=== PATIENT | female | born 1935 | race Caucasian/White ===

== ENCOUNTER 2017-11-16 20:52 | Inpatient (IN) | payer MEDICARE ==
[2017-11-16] MEDS ORDERED: MELATONIN 3 MG TABLET PO PRN (23:47)
[2017-11-16] MEDS ORDERED: traMADol 50 MG TAB PO PRN (23:47)
[2017-11-16] MEDS ORDERED: NALOXONE 0.4 MG/ML 1 ML VIAL IV PRN (23:47)
[2017-11-16] MEDS ORDERED: ALPRAZolam 0.25 MG TAB PO PRN (23:47)
[2017-11-16] MEDS ORDERED: ACETAMINOPHEN TAB 325 MG TAB PO PRN (23:47)
[2017-11-16 23:54] VITALS: BMI 27.8
[2017-11-16] MEDS ORDERED: hydrALAZINE HCL 20 MG/ML 1 ML VIAL IVP PRN (23:58)
[2017-11-17] MEDS: SODIUM CHLORIDE 0.9% 1,000 ML IV SCH ×2 (00:26→12:33)
[2017-11-17 00:41] LABS: Basophils % (A) 0 %; Eosinophils % (A) 1 %; HCT 31.4 % (34.0-46.0); HGB 10.1 gm/dL (11.4-16.0); Lymphocytes # (A) 0.4 k/uL (1.0-4.8); Lymphocytes % (A) 5 %; MCH 26.7 pg (25.0-35.0); MCHC 32.2 g/dL (31.0-37.0); MCV 82.8 fL (80.0-100.0); Mean Platelet Volume 7.6; Monocytes # (A) 0.2 k/uL (0-1.0); Monocytes % (A) 3 %; Neutrophils # (A) 6.5 k/uL (1.3-7.7); Neutrophils % (A) 89 %; Platelet Count 250 k/uL (150-450); RBC 3.79 m/uL (3.80-5.40); RDW 13.9 % (11.5-15.5); WBC 7.4 k/uL (3.8-10.6)
[2017-11-17 01:02] LABS: INR 1.1 (<1.2); Prothrombin Time 10.9 sec (9.0-12.0)
[2017-11-17 01:05] LABS: Appearance,Urine Clear (Clear); Bilirubin,Urine Negative (Negative); Blood,Urine Small (Negative); Color,Urine Yellow; Glucose,Urine (UA) Negative (Negative); Ketones,Urine Negative (Negative); Leukocyte Esterase,Urine Moderate (Negative); Nitrite,Urine Negative (Negative); PH, Urine 6.5 (5.0-8.0); Protein,Urine 1+ (Negative); RBC,Urine 17 /hpf (0-5); Specific Gravity,Urine 1.036 (1.001-1.035); Squamous Epithelial Cell,Urine <1 /hpf (0-4); Urobilinogen,Urine <2.0 mg/dL (<2.0); WBC,Urine 30 /hpf (0-5)
[2017-11-17 01:21] LABS: ALT 37 U/L (9-52); AST 21 U/L (14-36); Albumin 2.9 g/dL (3.5-5.0); Alkaline Phosphatase 62 U/L (38-126); Anion Gap 11 mmol/L; Blood Urea Nitrogen 13 mg/dL (7-17); Calcium 8.4 mg/dL (8.4-10.2); Carbon Dioxide 25 mmol/L (22-30); Chloride 103 mmol/L (98-107); Glucose 143 mg/dL (74-99); Potassium 3.7 mmol/L (3.5-5.1); Sodium 139 mmol/L (137-145); Total Bilirubin 0.2 mg/dL (0.2-1.3); Total Protein 5.2 g/dL (6.3-8.2)
--- NOTE | 2017-11-17 05:20 | HP ---
HISTORY AND PHYSICAL CHIEF COMPLAINT: The chief complaints are fever and pyelonephritis. HISTORY OF PRESENT ILLNESS: This 82-year-old woman with a past medical history of diabetes, hypertension, incisional hernia was admitted to [facility] on Wednesday with the complaints of fever up to 103 and some urgency in micturition suggestive of pyelonephritis. Patient has been on broad-spectrum IV antibiotics. The patient has high white count at that time. Renal function was normal. Apparently because of lack of improvement and some abdominal pain, the patient underwent a CAT scan of the abdomen which showed multiple abnormalities including large calculus 2 x 1.5 cm x 1.5 cm in the right renal pelvis and smaller 11 mm calcification with evidence of obstructive uropathy. Dilatation of the right ureter with right-sided obstructive uropathy was noted and Urology was contacted and patient was transferred to [facility] as a direct admission at this time. There is no history of any fevers, rigors. No history of headache, loss of conscious or seizures. PAST MEDICAL HISTORY: Hypertension, diabetes mellitus, history of salivary gland tumor, history of sepsis. MEDICATIONS: Medications prior to admission include home medications are reviewed include: 1. Lisinopril 40 mg p.o. daily. 2. Clonidine 0.2 mg p.o. daily. 3. Metformin. ALLERGIES: Allergies are none. FAMILY HISTORY: No history of heart disease or strokes in the family. SOCIAL HISTORY: No history of smoking. No history of alcohol intake. REVIEW OF SYSTEMS: ENT: No diminished hearing or diminished vision. CARDIOVASCULAR SYSTEM: No angina. RESPIRATORY SYSTEM: As mentioned earlier. GI: As mentioned earlier. : As mentioned earlier. NERVOUS SYSTEM: No numbness or weakness. ALLERGY/IMMUNOLOGY: No history of asthma or hayfever. MUSCULOSKELETAL: As mentioned earlier. HEMATOLOGY/ONCOLOGY: No history of anemia. ENDOCRINE: As mentioned earlier. CONSTITUTIONAL: As mentioned earlier. DERMATOLOGY: Negative. RHEUMATOLOGY: Negative. PSYCHIATRY: As mentioned earlier. PHYSICAL EXAM: The patient is alert and oriented x3. The pulse is 79, blood pressure 137/79, respirations 16, temperature 97.8, pulse ox 98% on room air. HEENT: Conjunctivae normal. Oral mucosa moist. Neck is no jugular venous distention. No carotid bruit. No lymph node enlargement. CARDIOVASCULAR: S1 and S2 muffled. No S3, no S4. RESPIRATORY: Breath sounds diminished at the bases. No rhonchi. No crackles. ABDOMEN: Soft, obese, status post incisional hernia repair previously old. Otherwise, nontender, no mass palpable. No renal angle tenderness noted. Bowel sounds present. No ascites. LEGS: No edema, no swelling. NERVOUS SYSTEM: Higher functions as mentioned earlier. Moves all 4 limbs. No focal motor or sensory deficits. LYMPHATICS: No lymphadenopathy of the neck, axillae or groin. SKIN: No ulcer, rash or bleeding. LABS: The white count is elevated. Otherwise the creatinine is normal. ASSESSMENT: 1. Recent acute pyelonephritis and sepsis. 2. Renal calculus and possibly hydronephrosis. 3. Diabetes mellitus type 2. 4. Hypertension. 5. History of salivary gland tumor. 6. History of recent sepsis. 7. History of recurrent incisional hernia and repair. 8. FULL CODE. RECOMMENDATIONS AND DISCUSSION: In this 82-year-old woman who presented with multiple medical problems, we will monitor the patient closely, continue the current medication, continue symptomatic treatment. Will obtain cultures, baseline labs and we will continue the antibiotics, symptomatic treatment provided, home medications will be continued. Urology will be consulted. DVT prophylaxis. See orders for further details. Prognosis guarded because of multiple complex medical issues. Further recommendations to follow. MMODL / IJN: [id number] /
[2017-11-17 06:53] LABS: Glucose,Whole Blood 131 mg/dL (75-99)
[2017-11-17] MEDS: INSULIN ASPART 100 UNIT/ML 1 ML 10 ML VIAL SQ SCH ×3 (07:29→17:47)
--- NOTE | 2017-11-17 07:39 | XR ---
EXAMINATION TYPE: XR chest 1V portable DATE OF EXAM: 11/17/2017 COMPARISON: NONE INDICATION: CHF TECHNIQUE: Single frontal view of the chest is obtained. FINDINGS: The heart size is enlarged. The pulmonary vasculature is normal. No suspicious infiltrates are evident. IMPRESSION: 1. Cardiomegaly. 2. No suspicious infiltrates.
[2017-11-17 08:16] LABS: Basophils % (A) 0 %; Eosinophils # (A) 0.1 k/uL (0-0.7); Eosinophils % (A) 1 %; HGB 10.4 gm/dL (11.4-16.0); Lymphocytes # (A) 0.4 k/uL (1.0-4.8); Lymphocytes % (A) 5 %; MCH 26.9 pg (25.0-35.0); MCHC 32.4 g/dL (31.0-37.0); MCV 82.9 fL (80.0-100.0); Mean Platelet Volume 7.2; Monocytes # (A) 0.3 k/uL (0-1.0); Monocytes % (A) 4 %; Neutrophils # (A) 6.9 k/uL (1.3-7.7); Neutrophils % (A) 88 %; Platelet Count 283 k/uL (150-450); RBC 3.86 m/uL (3.80-5.40); RDW 13.9 % (11.5-15.5); WBC 7.9 k/uL (3.8-10.6)
[2017-11-17 08:28] LABS: Anion Gap 12 mmol/L; Blood Urea Nitrogen 12 mg/dL (7-17); Calcium 8.5 mg/dL (8.4-10.2); Carbon Dioxide 26 mmol/L (22-30); Chloride 101 mmol/L (98-107); Glucose 114 mg/dL (74-99); Potassium 3.6 mmol/L (3.5-5.1); Sodium 139 mmol/L (137-145)
[2017-11-17] MEDS: LISINOPRIL 20 MG TAB PO SCH (08:51)
[2017-11-17] MEDS: HEPARIN SODIUM,PORCINE 5,000 UNIT/ML 1 ML VIAL SQ SCH ×2 (08:52→22:01)
[2017-11-17] MEDS: cloNIDine HCL 0.2 MG TAB PO SCH ×2 (08:52→22:01)
[2017-11-17] MEDS: cefTRIAXone IN SWFI 1,000 MG/10 ML SYRINGE IVP SCH (08:52)
[2017-11-17] MEDS: PANTOPRAZOLE 40 MG TABLET PO SCH (08:52)
--- NOTE | 2017-11-17 10:37 | P.GSCN ---
History of Present Illness Consult date: 11/17/17 History of present illness: The patient is an 82-year-old female transferred from [facility] because of kidney stones and pyelonephritis. The patient over the weekend developed an elevated temperature to what she said was 101. She ended up in the [place] emergency room. Her urine apparently was infected and she is being treated with a pyelonephritis. Her symptoms did not seem to improve and she is having some pain thus a computed tomography scan of the abdomen was obtained. The computed tomography scan of the abdomen identified a large left renal pelvic stone, greater than 2 cm plus some Lower calyceal stones on the left at about a centimeter. On the right there was hydroureteronephrosis to a stone in the distal right ureter. She denied any right flank pain and right lower quadrant pain. She has been given antibiotics at [facility] and her white count has normalized as has her temperature. She is transferred for further medical and/or urologic care. This is the patient's first stone. She was evaluated in the past by for hematuria. He has no other urologic issues. 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 REMOVAL OF SALIVA GLAND TUMOR. hernia surgtery x2 Past Anesthesia/Blood Transfusion Reactions: No Reported Reaction Past Psychological History: No Psychological Hx Reported Smoking Status: Never smoker Past Alcohol Use History: None Reported Past Drug Use History: None Reported - Past Family History Mother Family Medical History: No Reported History Medications and Allergies Home Medications Medication Instructions Recorded Confirmed Type cloNIDine HCL 0.2 mg PO BID 12/25/14 11/17/17 History Lisinopril 40 mg PO DAILY 11/16/17 11/17/17 History Multivit-Min/FA/Lycopen/Lutein 1 tab PO DAILY 11/17/17 11/17/17 History [Centrum Silver Tablet] Perfect Eye 1 tab PO BID 11/17/17 11/17/17 History metFORMIN HCL 1,000 mg PO DIRECTED 11/17/17 11/17/17 History Allergies Allergy/AdvReac Type Severity Reaction Status Date / Time No Known Allergies Allergy Verified 11/17/17 07:57 Surgical - Exam Vital Signs Temp Pulse Resp BP Pulse Ox 97.8 F 79 16 137/79 98 11/16/17 23:34 11/16/17 23:34 11/16/17 23:34 11/16/17 23:34 11/16/17 23:34 - General well developed, well nourished, no distress - Eyes PERRL - ENT no hearing loss - Neck trachea midline - Respiratory normal expansion, normal respiratory effort - Cardiovascular Rhythm: regular - Abdomen Abdomen: soft, non tender - Neurologic normal coordination, normal sensation - Musculoskeletal normal posture - Psychiatric oriented to time, oriented to person, oriented to place, speech is normal, memory intact Results - Labs 11/17/17 07:43 11/17/17 07:43 Abnormal Lab Results - Last 24 Hours (Table) 11/17/17 11/17/17 11/17/17 Range/Units 00:27 00:27 00:40 RBC 3.79 L (3.80-5.40) m/uL Hgb 10.1 L (11.4-16.0) gm/dL Hct 31.4 L (34.0-46.0) % Lymphocytes # 0.4 L (1.0-4.8) k/uL Creatinine 0.51 L (0.52-1.04) mg/dL Glucose 143 H (74-99) mg/dL POC Glucose (mg/dL) (75-99) mg/dL Total Protein 5.2 L (6.3-8.2) g/dL Albumin 2.9 L (3.5-5.0) g/dL Ur Specific Gleason 1.036 H (1.001-1.035) Urine Protein 1+ H (Negative) Urine Blood Small H (Negative) Ur Leukocyte Esterase Moderate H (Negative) Urine RBC 17 H (0-5) /hpf Urine WBC 30 H (0-5) /hpf 11/17/17 11/17/17 11/17/17 Range/Units 06:52 07:43 07:43 RBC (3.80-5.40) m/uL Hgb 10.4 L (11.4-16.0) gm/dL Hct 32.0 L (34.0-46.0) % Lymphocytes # 0.4 L (1.0-4.8) k/uL Creatinine 0.51 L (0.52-1.04) mg/dL Glucose 114 H (74-99) mg/dL POC Glucose (mg/dL) 131 H (75-99) mg/dL Total Protein (6.3-8.2) g/dL Albumin (3.5-5.0) g/dL Ur Specific Gleason (1.001-1.035) Urine Protein (Negative) Urine Blood (Negative) Ur Leukocyte Esterase (Negative) Urine RBC (0-5) /hpf Urine WBC (0-5) /hpf Diabetes panel 11/17/17 11/17/17 Range/Units 00:27 07:43 Sodium 139 139 (137-145) mmol/L Potassium 3.7 3.6 (3.5-5.1) mmol/L Chloride 103 101 (98-107) mmol/L Carbon Dioxide 25 26 (22-30) mmol/L BUN 13 12 (7-17) mg/dL Creatinine 0.51 L 0.51 L (0.52-1.04) mg/dL Glucose 143 H 114 H (74-99) mg/dL Calcium 8.4 8.5 (8.4-10.2) mg/dL AST 21 (14-36) U/L ALT 37 (9-52) U/L Alkaline Phosphatase 62 (38-126) U/L Total Protein 5.2 L (6.3-8.2) g/dL Albumin 2.9 L (3.5-5.0) g/dL Calcium panel 11/17/17 11/17/17 Range/Units 00:27 07:43 Calcium 8.4 8.5 (8.4-10.2) mg/dL Albumin 2.9 L (3.5-5.0) g/dL Pituitary panel 11/17/17 11/17/17 Range/Units 00:27 07:43 Sodium 139 139 (137-145) mmol/L Potassium 3.7 3.6 (3.5-5.1) mmol/L Chloride 103 101 (98-107) mmol/L Carbon Dioxide 25 26 (22-30) mmol/L BUN 13 12 (7-17) mg/dL Creatinine 0.51 L 0.51 L (0.52-1.04) mg/dL Glucose 143 H 114 H (74-99) mg/dL Calcium 8.4 8.5 (8.4-10.2) mg/dL Adrenal panel 11/17/17 11/17/17 Range/Units 00:27 07:43 Sodium 139 139 (137-145) mmol/L Potassium 3.7 3.6 (3.5-5.1) mmol/L Chloride 103 101 (98-107) mmol/L Carbon Dioxide 25 26 (22-30) mmol/L BUN 13 12 (7-17) mg/dL Creatinine 0.51 L 0.51 L (0.52-1.04) mg/dL Glucose 143 H 114 H (74-99) mg/dL Calcium 8.4 8.5 (8.4-10.2) mg/dL Total Bilirubin 0.2 (0.2-1.3) mg/dL AST 21 (14-36) U/L ALT 37 (9-52) U/L Alkaline Phosphatase 62 (38-126) U/L Total Protein 5.2 L (6.3-8.2) g/dL Albumin 2.9 L (3.5-5.0) g/dL - Imaging CT scan - abdomen: report reviewed, image reviewed CT scan - pelvis: report reviewed, image reviewed Assessment and Plan Assessment: Impression: Urinary tract infection with sepsis presently being treated, left renal calculi, right ureteral calculus with obstruction. History of hypertension. Recommendations: The right ureteral calculus is one of concern at present however with the antibiotics are sepsis appears to be resolving. Frequently pyelonephrosis occurs with these obstructing stones and infection however the antibiotics seemed to control this is the white count and temperature of normalized. Since she is relatively asymptomatic with a normal white cell count and a normal temperature we probably can wait about a week to treat her completely with antibiotics and then secondarily if she does not pass a stone do ureteroscopy. The left side will probably need a percutaneous nephrostolithotomy and this can be done at a later date. I will notify of her admission.
[2017-11-17 11:06] LABS: Glucose,Whole Blood 122 mg/dL (75-99)
[2017-11-17 17:12] LABS: Glucose,Whole Blood 135 mg/dL (75-99)
--- NOTE | 2017-11-17 18:57 | P.PN ---
Subjective Progress Note Date: 11/17/17 Progress Note being dictated for Dr. Menendez. Interval history: This is an 82-year-old female admitted with recent acute pyelonephritis, sepsis, renal calculus and possible hydronephrosis and multiple other medical issues. CT reporting large left renal pelvic stone greater than 2 cm plus lower calyceal stones, right a oh ureter nephrosis secondary to a stone distal right ureter. Denies flank pain. Complains of pressure, frequency. No hematuria. Creatinine 0.5. Urine culture pending. Staff Obtaining sensitivities of urine culture obtained from [facility]. Evaluated by urology, recommendations noted. Maintained on IV antibiotics. Afebrile, normal WBC. Objective - Vital Signs Vital signs: Vital Signs Temp 98.8 F 11/17/17 15:15 Pulse 94 11/17/17 15:15 Resp 20 11/17/17 15:15 BP 146/79 11/17/17 15:15 Pulse Ox 95 11/17/17 15:15 Intake & Output 11/16/17 11/17/17 11/17/17 18:59 06:59 18:59 Intake Total 420 Balance 420 Weight 73.5 kg Intake: Intake, IV Titration 420 Amount Sodium Chloride 0.9% 1, 420 000 ml @ 70 mls/hr IV . [id number] [facility] Rx#:[id number] Other: Voiding Method Toilet Toilet # Voids 2 3 - Exam PHYSICAL EXAM: VITAL SIGNS: As above GENERAL: Sitting up in chair, no acute distress HEENT: Conjunctivae normal. eyes normal. Oral mucosa moist NECK: No JVD. No thyroid enlargement. No LNs CARDIOVASCULAR: S1, S2 muffled. No murmur RESPIRATION: Breath sounds diminished in the bases. No rhonchi or crackles. No bronchial breathing. ABDOMEN: Soft, nontender . No guarding. no masses palpable.Bowel sounds heard. LEGS: No edema. no swelling PSYCHIATRY: Alert and oriented -3, mood and affect normal. NERVOUS SYSTEM: Cranial N 2-12 grossly normal. Moves all 4 limbs. Diffuse weakness No focal deficits. Skin: no ulcer no rash Joints: No active swelling. No inflammation. Lymphatic system. No LN neck axilla or groin. - Labs CBC & Chem 7: 11/17/17 07:43 11/17/17 07:43 Labs: Abnormal Lab Results - Last 24 Hours (Table) 11/17/17 11/17/17 11/17/17 Range/Units 00:27 00:27 00:40 RBC 3.79 L (3.80-5.40) m/uL Hgb 10.1 L (11.4-16.0) gm/dL Hct 31.4 L (34.0-46.0) % Lymphocytes # 0.4 L (1.0-4.8) k/uL Creatinine 0.51 L (0.52-1.04) mg/dL Glucose 143 H (74-99) mg/dL POC Glucose (mg/dL) (75-99) mg/dL Total Protein 5.2 L (6.3-8.2) g/dL Albumin 2.9 L (3.5-5.0) g/dL Ur Specific [place] 1.036 H (1.001-1.035) Urine Protein 1+ H (Negative) Urine Blood Small H (Negative) Ur Leukocyte Esterase Moderate H (Negative) Urine RBC 17 H (0-5) /hpf Urine WBC 30 H (0-5) /hpf 11/17/17 11/17/17 11/17/17 Range/Units 06:52 07:43 07:43 RBC (3.80-5.40) m/uL Hgb 10.4 L (11.4-16.0) gm/dL Hct 32.0 L (34.0-46.0) % Lymphocytes # 0.4 L (1.0-4.8) k/uL Creatinine 0.51 L (0.52-1.04) mg/dL Glucose 114 H (74-99) mg/dL POC Glucose (mg/dL) 131 H (75-99) mg/dL Total Protein (6.3-8.2) g/dL Albumin (3.5-5.0) g/dL Ur Specific [place] (1.001-1.035) Urine Protein (Negative) Urine Blood (Negative) Ur Leukocyte Esterase (Negative) Urine RBC (0-5) /hpf Urine WBC (0-5) /hpf 11/17/17 11/17/17 Range/Units 11:04 17:04 RBC (3.80-5.40) m/uL Hgb (11.4-16.0) gm/dL Hct (34.0-46.0) % Lymphocytes # (1.0-4.8) k/uL Creatinine (0.52-1.04) mg/dL Glucose (74-99) mg/dL POC Glucose (mg/dL) 122 H 135 H (75-99) mg/dL Total Protein (6.3-8.2) g/dL Albumin (3.5-5.0) g/dL Ur Specific [place] (1.001-1.035) Urine Protein (Negative) Urine Blood (Negative) Ur Leukocyte Esterase (Negative) Urine RBC (0-5) /hpf Urine WBC (0-5) /hpf Microbiology - Last 24 Hours (Table) 11/17/17 00:40 Urine Culture - Preliminary Urine,Voided Assessment and Plan Assessment: 1. Acute UTI with sepsis secondary to left renal calculi, right ureteral calculus with obstruction. 2. Recent acute pyelonephritis and sepsis 3. Diabetes mellitus type 2 4. Hypertension 5. Recent sepsis Continuing current medication regime ,monitoring and symptomatic treatment. As mentioned above urine culture/sensitivity results being obtained from [facility] by staff. Urology wishes patient to continue on IV antibiotics for another 24 hours. No ureteroscopy at this time, possibly after completing a week of antibiotics, and eventually possible left nephrostolithomoty. Discharge planning in progress for tomorrow. Follow closely with urology. The impression and plan of care has been dictated as directed. : I performed a history and examination of this patient, discussed the same with the dictator. I agree with the dictator's note ,documented as a scribe. Any additional findings or plans will be noted.
[2017-11-17 23:11] VITALS: RESP 16; TEMP 97.1
[2017-11-18 06:21] VITALS: BP 170/73; PULSE 70
[2017-11-18] MEDS: HEPARIN SODIUM,PORCINE 5,000 UNIT/ML 1 ML VIAL SQ SCH (09:05)
[2017-11-18] MEDS: SODIUM CHLORIDE 0.9% 1,000 ML IV SCH (09:06)
[2017-11-18] MEDS: cloNIDine HCL 0.2 MG TAB PO SCH (09:06)
[2017-11-18] MEDS: PANTOPRAZOLE 40 MG TABLET PO SCH (09:06)
[2017-11-18] MEDS: cefTRIAXone IN SWFI 1,000 MG/10 ML SYRINGE IVP SCH (09:06)
[2017-11-18] MEDS: LISINOPRIL 20 MG TAB PO SCH (09:06)
--- NOTE | 2017-11-18 12:03 | P.PN ---
Progress Note - Text Progress Note Date: 11/18/17 The patient remains afebrile and comfortable. She is tolerating a regular diet and denies any abdominal pain. Urine culture obtained in [place] on 11/14 grew E. coli which was sensitive to all antibiotics tested. Blood culture obtained when she was admitted to this hospital is showing no growth. From my standpoint the patient could be discharged on Levaquin 500 mg daily for 14 days. I can see her back in my office in 7-10 days and at that time if she is doing well she will be scheduled for ureteroscopy with lithotripsy for treatment of her ureteral calculus.
--- NOTE | 2017-11-18 17:52 | P.DS ---
Providers Date of admission: 11/16/17 23:25 Expected date of discharge: 11/18/17 Attending physician: Ana Menendez Consults: 11/16/17 23:48 Consult Physician Routine Consulting Provider: Lambert Moreira Consult Reason/Comments: urolithiasis Do you want consulting provider notified?: Yes, Notify in am Primary care physician: Stated None Hospital Course: Final Diagnoses: 1. Acute UTI with sepsis secondary to left renal calculi, right ureteral calculus with obstruction. 2. Recent acute pyelonephritis and sepsis 3. Diabetes mellitus type 2 4. Hypertension Hospital course:This is an 82-year-old female admitted with recent acute pyelonephritis, sepsis, renal calculus and possible hydronephrosis and multiple other medical issues. CT reporting large left renal pelvic stone greater than 2 cm plus lower calyceal stones, right hydroureternephrosis secondary to a stone distal right ureter. No hematuria, denied flank pain. Creatinine stable. Urine culture negative. Urine culutre with sensitivities from [facility], verbally reported as E. coli, sensitive to all antibiotics tested. Hard copy in Route to chart. Evaluated by urology.Maintained on IV antibiotics. Significant clinical improvement. Cleared by urology for discharge.Patient to be discharged home on 14 days of Levaquin as per urology with outpatient ureteroscopy and lithotripsy being scheduled. Patient is being discharged home in a stable condition with guarded prognosis. PHYSICAL EXAM: GENERAL: Alert and oriented -3,Sitting up in chair, no acute distress CARDIOVASCULAR: S1, S2 muffled. No murmur RESPIRATION: Breath sounds diminished in the bases. No rhonchi or crackles. ABDOMEN: Soft, nontender . No guarding. no masses palpable.Bowel sounds heard. NERVOUS SYSTEM: Cranial N 2-12 grossly normal. Moves all 4 limbs. No focal deficits. The impression and plan of care has been dictated as directed. : I performed a history and examination of this patient, discussed the same with the dictator. I agree with the dictator's note ,documented as a scribe. Any additional findings or plans will be noted. Time taken: 35 minutes Patient Condition at Discharge: Stable Plan - Discharge Summary Discharge Rx Participant: No New Discharge Prescriptions: New Levofloxacin [Levaquin] 500 mg PO DAILY 14 Days #14 tab Omeprazole [PriLOSEC] 20 mg PO AC-BID 15 Days #30 cap No Action cloNIDine HCL 0.2 mg PO BID Lisinopril 40 mg PO DAILY Multivit-Min/FA/Lycopen/Lutein [Centrum Silver Tablet] 1 tab PO DAILY metFORMIN HCL 1,000 mg PO DIRECTED Perfect Eye 1 tab PO BID Discharge Medication List cloNIDine HCL 0.2 mg PO BID 12/25/14 [History] Lisinopril 40 mg PO DAILY 11/16/17 [History] Multivit-Min/FA/Lycopen/Lutein [Centrum Silver Tablet] 1 tab PO DAILY 11/17/17 [ History] Perfect Eye 1 tab PO BID 11/17/17 [History] metFORMIN HCL 1,000 mg PO DIRECTED 11/17/17 [History] Levofloxacin [Levaquin] 500 mg PO DAILY 14 Days #14 tab 11/18/17 [Rx] Omeprazole [PriLOSEC] 20 mg PO AC-BID 15 Days #30 cap 11/18/17 [Rx] Follow up Appointment(s)/Referral(s): Tadeo Villavicencio NPC [REFERRING] - 11/19/17 9:00 am Sarwat Enciso MD [STAFF PHYSICIAN] - 11/26/17 11:00 am Ambulatory/Diagnostic Orders: Complete Blood Count w/diff [LAB.AMB] Time Frame: 3 Days, Location: Determined By Patient Patient Instructions/Handouts: Omeprazole (By mouth), Levofloxacin (By mouth), Kidney Stones (DC), Kidney Infection (DC) Discharge Disposition: HOME SELF-CARE
== END 2017-11-18 15:55 | disposition home or self-care (01) | DRG 872 ==
LOC: 5MS5E 23:25
PROVIDERS: ADMIT Hospitalist; ATTEND Hospitalist
DX: A41.51 Sepsis due to Escherichia coli [E. coli] (principal); N10 Acute pyelonephritis; N13.6 Pyonephrosis; E11.9 Type 2 diabetes mellitus without complications; E78.5 Hyperlipidemia, unspecified; I10 Essential (primary) hypertension; K43.2 Incisional hernia without obstruction or gangrene; Z79.84 Long term (current) use of oral hypoglycemic drugs; Z79.899 Other long term (current) drug therapy; Z85.89 Personal history of malignant neoplasm of other organs and systems; Z87.440 Personal history of urinary (tract) infections; Z92.3 Personal history of irradiation; Z96.653 Presence of artificial knee joint, bilateral
CPT/HCPCS: 71045; 80048; 80053; 81001; 83036; 85025; 85610; 87040; 87086; 93005

== ENCOUNTER → 2017-11-22 | Outpatient (CLI) | payer MEDICARE ==
[2017-11-22 12:56] LABS: Basophils % (A) 0 %; Eosinophils # (A) 0.1 k/uL (0-0.7); Eosinophils % (A) 1 %; HCT 34.2 % (34.0-46.0); HGB 10.9 gm/dL (11.4-16.0); Lymphocytes # (A) 0.7 k/uL (1.0-4.8); Lymphocytes % (A) 9 %; MCHC 31.8 g/dL (31.0-37.0); Mean Platelet Volume 7.1; Monocytes # (A) 0.3 k/uL (0-1.0); Monocytes % (A) 4 %; Neutrophils # (A) 6.4 k/uL (1.3-7.7); Neutrophils % (A) 84 %; Platelet Count 438 k/uL (150-450); RBC 4.18 m/uL (3.80-5.40); RDW 14.1 % (11.5-15.5); WBC 7.6 k/uL (3.8-10.6)
[2017-11-22 13:06] LABS: Anion Gap 16 mmol/L; Blood Urea Nitrogen 12 mg/dL (7-17); Calcium 9.3 mg/dL (8.4-10.2); Carbon Dioxide 28 mmol/L (22-30); Chloride 102 mmol/L (98-107); Glucose 106 mg/dL (74-99); Potassium 3.4 mmol/L (3.5-5.1); Sodium 146 mmol/L (137-145)
== END | disposition home or self-care (01) ==
LOC: LABWHC1 12:09
PROVIDERS: ATTEND Nurse Practitioner
DX: N39.0 Urinary tract infection, site not specified (principal); N12 Tubulo-interstitial nephritis, not specified as acute or chronic
CPT/HCPCS: 36415; 80048; 85025

== ENCOUNTER → 2017-11-30 | Outpatient (CLI) | payer MEDICARE ==
--- NOTE | 2017-11-30 10:40 | XR ---
EXAMINATION TYPE: XR KUB DATE OF EXAM: 11/30/2017 COMPARISON: NONE HISTORY: Follow bilateral renal stones TECHNIQUE: One view abdominal series FINDINGS: The osseous structures are intact. The bowel gas pattern is nonspecific. There are dilated bowel loo ps in the abdomen. Extensive retained fecal debris obscures the renal outlines. There is suspicion fo r a central staghorn calculus measuring approximately 2 cm on the left. Renal outline on the right is completely obscured. Arthropathy of the hips. Calcifications in the pelvis are likely vascular. Degenerative change of the spine. IMPRESSION: 1. Suspect a left renal pelvic calcification measuring 2 cm. Assessment of the right kidney is nondia gnostic due to extensive overlying bowel gas. Note is made there is dilated bowel loops particularly in the right abdomen correlate clinically.
== END | disposition home or self-care (01) ==
LOC: RADXRMAIN 10:17
PROVIDERS: ATTEND Urology
DX: N20.2 Calculus of kidney with calculus of ureter (principal)
CPT/HCPCS: 74018

== ENCOUNTER → 2018-01-11 | Outpatient (CLI) | payer MEDICARE ==
[2018-01-11 11:26] LABS: ALT 23 U/L (9-52); AST 19 U/L (14-36); Alkaline Phosphatase 63 U/L (38-126); Anion Gap 9 mmol/L; Blood Urea Nitrogen 17 mg/dL (7-17); Calcium 9.7 mg/dL (8.4-10.2); Carbon Dioxide 26 mmol/L (22-30); Chloride 105 mmol/L (98-107); Glucose 112 mg/dL (74-99); Potassium 4.4 mmol/L (3.5-5.1); Sodium 140 mmol/L (137-145); Total Bilirubin 0.4 mg/dL (0.2-1.3); Total Protein 6.6 g/dL (6.3-8.2)
[2018-01-11 11:31] LABS: Basophils % (A) 0 %; Eosinophils # (A) 0.1 k/uL (0-0.7); Eosinophils % (A) 1 %; HCT 35.1 % (34.0-46.0); HGB 10.8 gm/dL (11.4-16.0); Lymphocytes # (A) 0.7 k/uL (1.0-4.8); Lymphocytes % (A) 12 %; MCH 25.4 pg (25.0-35.0); MCHC 30.9 g/dL (31.0-37.0); MCV 82.3 fL (80.0-100.0); Mean Platelet Volume 7.4; Monocytes # (A) 0.2 k/uL (0-1.0); Monocytes % (A) 4 %; Neutrophils # (A) 4.6 k/uL (1.3-7.7); Neutrophils % (A) 80 %; Platelet Count 249 k/uL (150-450); RBC 4.27 m/uL (3.80-5.40); RDW 14.8 % (11.5-15.5); WBC 5.7 k/uL (3.8-10.6)
[2018-01-11 11:55] LABS: Appearance,Urine Clear (Clear); Bacteria,Urine Rare /hpf; Bilirubin,Urine Negative (Negative); Blood,Urine Moderate (Negative); Color,Urine Yellow; Glucose,Urine (UA) Negative (Negative); Ketones,Urine Negative (Negative); Leukocyte Esterase,Urine Moderate (Negative); Mucus,Urine Occasional /hpf; Nitrite,Urine Negative (Negative); Protein,Urine Trace (Negative); RBC,Urine 77 /hpf (0-5); Specific Gravity,Urine 1.014 (1.001-1.035); Urobilinogen,Urine <2.0 mg/dL (<2.0); WBC,Urine 28 /hpf (0-5)
--- NOTE | 2018-01-11 14:45 | XR ---
EXAMINATION TYPE: XR chest 2V DATE OF EXAM: 01/11/2018 COMPARISON: 11/17/2017 HISTORY: Presurgical evaluation. TECHNIQUE: Frontal and lateral views of the chest are obtained. FINDINGS: There is no focal air space opacity, pleural effusion, or pneumothorax seen. Minimal experience planning strategist tatiana left basilar atelectasis or parenchymal scarring is noted. The cardiac silhouette size is upper l imits of normal. Advanced arthropathy is seen of the glenohumeral joints. IMPRESSION: Chronic left basilar scarring or atelectasis. No acute cardiopulmonary process.
== END | disposition home or self-care (01) ==
LOC: LABPAT 10:06
PROVIDERS: ATTEND Urology
DX: Z01.818 Encounter for other preprocedural examination (principal); Z01.812 Encounter for preprocedural laboratory examination; N20.0 Calculus of kidney; E11.9 Type 2 diabetes mellitus without complications; E78.5 Hyperlipidemia, unspecified; R31.29 Other microscopic hematuria; I10 Essential (primary) hypertension; I25.10 Atherosclerotic heart disease of native coronary artery without angina pectoris
CPT/HCPCS: 36415; 71046; 80053; 81001; 85025; 86850; 86900; 86901; 87086; 93005

== ENCOUNTER 2018-01-21 09:42 | Day surgery (SDC) | payer MEDICARE ==
[2018-01-13 16:16] VITALS: BMI 25.7
--- NOTE | 2018-01-20 22:10 | P.GSHP ---
History of Present Illness H&P Date: 01/20/18 82 yo female with large left renal stone[>2cm] in the left renal pelvis as well a satellite stones She is having pain and comes for a left pcnl - Constitutional Constitutional: Denies chills, Denies fever - EENT Eyes: denies blurred vision, denies pain Ears, nose, mouth and throat: Denies headache, Denies sore throat - Cardiovascular Cardiovascular: Denies chest pain, Denies shortness of breath - Respiratory Respiratory: Denies cough, Denies 7 - Gastrointestinal Gastrointestinal: Denies abdominal pain, Denies diarrhea, Denies nausea, Denies vomiting - Genitourinary (Female) Genitourinary: Denies dysuria, Denies hematuria - Genitourinary (Male) Genitourinary: Denies dysuria, Denies hematuria - Musculoskeletal Musculoskeletal: Denies myalgias - Integumentary Integumentary: Denies pruritus, Denies rash - Neurological Neurological: Denies numbness, Denies weakness - Psychiatric Psychiatric: Denies anxiety, Denies depression - Endocrine Endocrine: Denies fatigue, Denies weight change Past Medical History Past Medical History: Cancer, Eye Disorder, Hyperlipidemia, Hypertension, Skin Disorder Additional Past Medical History / Comment(s): lt SALIVA GLAND (RADIATION). salivary cancer removed, 1985,psoriasis, kacey glaucoma and macular degeneration. History of Any Multi-Drug Resistant Organisms: None Reported Past Surgical History: Hernia Repair, Joint Replacement Additional Past Surgical History / Comment(s): BILATERAL TOTAL KNEE. REMOVAL OF SALIVA GLAND TUMOR. hernia surgery x2 Past Anesthesia/Blood Transfusion Reactions: No Reported Reaction Smoking Status: Never smoker - Past Family History Mother Family Medical History: No Reported History Medications and Allergies Home Medications Medication Instructions Recorded Confirmed Type cloNIDine HCL 0.2 mg PO BID 12/25/14 01/13/18 History Lisinopril 40 mg PO DAILY 11/16/17 01/13/18 History Perfect Eye 1 tab PO BID 11/17/17 01/13/18 History metFORMIN HCL 1,000 mg PO BID 11/17/17 01/13/18 History amLODIPine [Norvasc] 5 mg PO DAILY 01/13/18 01/13/18 History Allergies Allergy/AdvReac Type Severity Reaction Status Date / Time No Known Allergies Allergy Verified 01/13/18 15:56 Surgical - Exam - General well developed, well nourished - Eyes PERRL - ENT no hearing loss - Neck trachea midline - Respiratory normal expansion, normal respiratory effort - Cardiovascular Rhythm: regular - Abdomen Abdomen: soft, non tender - Integumentary no rash, no growths - Neurologic normal coordination, normal sensation - Musculoskeletal normal gait, normal posture - Psychiatric oriented to time, oriented to person, oriented to place, speech is normal, memory intact Assessment and Plan Assessment: Impression: Left renal stone large Plan: pcnl left
[~2018-01-21 09:42] MED LIST: AMPICILLIN 1,000 MG in SODIUM CHLORIDE 0.9% 50 ML IVPB ONE; DEXAMETHASONE SOD PHOSPHATE 10 MG/ML 1 ML VIAL IV ONE; GENTAMICIN 100 MG in SODIUM CHLORIDE 0.9% 100 ML IVPB ONE; MIDAZOLAM 2 MG/2 ML VIAL IV PRN; ONDANSETRON 4 MG/2 ML VIAL IVP ONE; fentaNYL (PF) 50 MCG/ML 2 ML AMP IV PRN
[2018-01-21] MEDS: LACTATED RINGERS 1,000 ML IV SCH (10:40)
[2018-01-21 10:41] LABS: Glucose,Whole Blood 123 mg/dL (75-99)
[2018-01-21] MEDS ORDERED: LIDOCAINE 1% 20 ML VIAL (10MG/ML) FOR IV START INTRADERMA ONE (10:42)
--- NOTE | 2018-01-21 11:29 | XR ---
EXAMINATION TYPE: XR KUB DATE OF EXAM: 01/21/2018 COMPARISON: 11/30/2017 INDICATION: Kidney stones left side TECHNIQUE: Single view abdomen frontal supine view FINDINGS: Nonspecific bowel gas is present. Fecal debris is within the colon. Psoas margins are normal. No organomegaly is present. Large coarse calcifications may overlie the left renal pelvis measuring 2.0 x 2.3 cm. This would be d ifficult to separate from fecal debris. Some faint calcification in the inferior pole left kidney may be present measuring 0.6 cm. IMPRESSION: 1. Limited evaluation of renal stones given the abundant fecal debris and bowel gas. 2. Left-sided renal stones enlarged left renal pelvic stone however may be present.
[2018-01-21] MEDS ORDERED: IOPAMIDOL-300 50ML BTL MISCELLANE ONE (12:04)
[2018-01-21] MEDS ORDERED: LIDOCAINE 1% INJ 10MG/ML (20 ML MDV) ONE (12:06)
[2018-01-21] MEDS ORDERED: PROPOFOL 10 MG/ML 20 ML VIAL IV ONE (12:06)
[2018-01-21] MEDS ORDERED: ePHEDrine SULFATE/0.9% NACL/PF 50 MG/5 ML SYRINGE IV ONE (12:06)
[2018-01-21] MEDS ORDERED: SUCCINYLCHOLINE CHLORIDE 100 MG/5 ML SYR IV ONE (12:06)
[2018-01-21] MEDS ORDERED: fentaNYL (PF) 50 MCG/ML 2 ML AMP ONE (12:06)
[2018-01-21] MEDS ORDERED: MIDAZOLAM 2 MG/2 ML VIAL ONE (12:06)
[2018-01-21] MEDS ORDERED: ROCURONIUM BROMIDE 10 MG/ML 10 ML VIAL IV ONE (12:06)
[2018-01-21] MEDS ORDERED: ACETAMINOPHEN TAB 325 MG TAB PO PRN (13:48)
[2018-01-21] MEDS ORDERED: MAG HYDROX/AL HYDROX/SIMETH 30 ML CUP PO PRN (13:48)
[2018-01-21] MEDS ORDERED: ONDANSETRON 4 MG/2 ML VIAL IVP PRN (13:48)
[2018-01-21] MEDS ORDERED: KETOROLAC 30 MG/ML 1 ML VIAL IVP PRN (13:49)
[2018-01-21] MEDS ORDERED: HYDROmorphone PCA 5 MG/25 ML SYRINGE IV PRN (13:49)
[2018-01-21] MEDS ORDERED: NALOXONE 0.4 MG/ML 1 ML VIAL IV PRN (13:49)
--- NOTE | 2018-01-21 13:54 | P.OP ---
Date of Procedure: 01/21/18 Preoperative Diagnosis: Left renal stone large Postoperative Diagnosis: Same Procedure(s) Performed: Cystoscopy, placement of ureteral catheter left, percutaneous nephrostomy (Dr. sin), percutaneous nephrostolithotomy, large with ultrasound placement of 10 -B[place] J nephrostomy Anesthesia: SERGEI Surgeon: Lambert Moreira Estimated Blood Loss (ml): 50 Pathology: other (Stone) Condition: stable Disposition: PACU Indications for Procedure: The patient is an 82-year-old female with a large, greater than 2 cm left renal pelvic stone and a 1 cm left lower pole calyceal stone with pain who comes for percutaneous nephrostolithotomy Description of Procedure: The patient is brought to the operating suite. On the transport gurney she is given a general endotracheal anesthesia. She's placed in a frog position with a sterile prep and drape. Cystoscopy Foroblique lens and 22-B[place]wanan sheath identifies a left renal orifice which was intubated with a 5-[place] occluding balloon catheter. It is secured to a 16-[place]an Jauregui after removing the cystoscope. The patient is placed in the prone position with care to airways and extremities. Dr. Sin of radiology performed percutaneous nephrostomy to the lower pole calyx with the stone. We then dilate the tract to 30-B[place]wanan and introduced the working sheath. Remove the larger stone of the lower pole calyx with grasping forceps and actually crumbled. We then moved to the renal pelvis were identify the large renal pelvic stone. With ultrasound the stone was disintegrated in either suction out with ultrasound and removed with grasping forceps. At the end of the procedure I looked throughout the collecting system there are no remaining stones. A 10-[place] J nephrostomy tube was placed. The patient's awakened and returned recovery room in good condition. Blood loss is approximately 50 mL. She'll be placed in the hospital postoperatively.
[2018-01-21] MEDS: SODIUM CHLORIDE 0.45% 1,000 ML IV SCH (15:34)
[2018-01-21 16:53] LABS: Glucose,Whole Blood 155 mg/dL (75-99)
[2018-01-21 20:50] LABS: Glucose,Whole Blood 193 mg/dL (75-99)
[2018-01-21] MEDS: cloNIDine HCL 0.2 MG TAB PO SCH (20:56)
[2018-01-21] MEDS: metFORMIN 500 MG TAB PO SCH (20:56)
[2018-01-22 07:01] LABS: Glucose,Whole Blood 151 mg/dL (75-99)
[2018-01-22 07:50] VITALS: BP 127/64; PULSE 82; RESP 16; TEMP 97.1
[2018-01-22] MEDS ORDERED: LISINOPRIL 20 MG TAB PO SCH (09:00)
[2018-01-22] MEDS ORDERED: amLODIPine 5 MG TAB PO SCH (09:00)
[2018-01-22] MEDS: cloNIDine HCL 0.2 MG TAB PO SCH (09:19)
[2018-01-22] MEDS: metFORMIN 500 MG TAB PO SCH (09:19)
[2018-01-22] MEDS: LACTATED RINGERS 1,000 ML IV SCH (09:23)
[2018-01-22] MEDS: SODIUM CHLORIDE 0.45% 1,000 ML IV SCH (09:24)
--- NOTE | 2018-01-22 12:42 | P.DS ---
Providers Expected date of discharge: 01/22/18 Attending physician: Lambert Moreira Primary care physician: Stated None Hospital Course: On the day of admission, the patient underwent an uncomplicated left percutaneous nephrolithotomy. Postoperatively, she remained afebrile with stable vital signs. On the first postoperative day, she was comfortable and actually reported minimal discomfort. The Jauregui catheter was draining urine which was essentially clear in color. The nephrostomy tube was draining urine which was pink in color, without clots. The abdomen was soft and nontender. Procedures: Left percutaneous nephrolithotomy on 01/21/2018. Patient Condition at Discharge: Good Plan - Discharge Summary Discharge Rx Participant: Yes New Discharge Prescriptions: New Hydrocodone/Acetaminophen [[place] 5-325] 1 - 2 each PO Q4HR PRN #6 tab PRN Reason: Pain No Action cloNIDine HCL 0.2 mg PO BID Lisinopril 40 mg PO DAILY metFORMIN HCL 1,000 mg PO BID Perfect Eye 1 tab PO BID amLODIPine [Norvasc] 5 mg PO DAILY Discharge Medication List cloNIDine HCL 0.2 mg PO BID 12/25/14 [History] Lisinopril 40 mg PO DAILY 11/16/17 [History] Perfect Eye 1 tab PO BID 11/17/17 [History] metFORMIN HCL 1,000 mg PO BID 11/17/17 [History] amLODIPine [Norvasc] 5 mg PO DAILY 01/13/18 [History] Hydrocodone/Acetaminophen [[place] 5-325] 1 - 2 each PO Q4HR PRN #6 tab 01/22/18 [ Rx] Follow up Appointment(s)/Referral(s): Lambert Moreira MD [STAFF PHYSICIAN] - 3 Days Activity/Diet/Wound Care/Special Instructions: Discharge home with nephrostomy tube. Diet as tolerated. No strenuous activity. Okay to shower. Discharge Disposition: HOME SELF-CARE
--- NOTE | 2018-01-31 08:48 | FL ---
EXAMINATION TYPE: FL Perc Nephrostomy New Access DATE OF EXAM: 01/21/2018 COMPARISON: NONE HISTORY: Intraoperative nephrolithotomy Procedure had been discussed with the patient by Dr. Moreira, risks, benefits, alternatives, were dis cussed and any questions were answered. Informed consent was obtained. The patient was in a semipro ne position prepped and draped on the OR table in the usual sterile fashion. Utilizing a 15 cm lengt h [place] needle a single pass was made into a lower pole posterior calyx under fluoroscopic guidance. An 0.018 guidewire is passed through the needle and there was placement of a 6-[place] catheter sheat h system. There was conversion to a 0.035 system was performed with passage of a guidewire into the ureter utilizing a directional catheter. A second safety wire was placed. Remaining portion of pro cedure performed by . Approximately 3 minutes and 7 seconds of fluoroscopy was provided. IMPRESSION: 1. Successful intraoperative left nephrostomy prior to nephrolithotomy.
== END 2018-01-22 15:45 | disposition home or self-care (01) ==
LOC: OR 09:42 → 3SUR 13:49 → OR 01-22 15:45
PROVIDERS: ATTEND Urology
DX: N20.0 Calculus of kidney (principal); I10 Essential (primary) hypertension; E78.5 Hyperlipidemia, unspecified; L40.9 Psoriasis, unspecified; H40.9 Unspecified glaucoma; H35.30 Unspecified macular degeneration; E11.9 Type 2 diabetes mellitus without complications; Z79.84 Long term (current) use of oral hypoglycemic drugs; Z79.899 Other long term (current) drug therapy
CPT/HCPCS: 74485; 50081; 82365; 50432; 74018; C1769 ×4; C2628; C1894; C1729; J2250; J1580; J2405; J2001; J3010; J0290; J0330; J2704; Q9967; 86850; 86900; 86901